=== PATIENT | male | born 1960 | race Caucasian/White ===

== ENCOUNTER 2017-06-10 12:32 | Emergency (ER) | payer OTHER ==
[2017-06-10 13:13] VITALS: BP 150/85
--- NOTE | 2017-06-10 13:20 | UC ---
Lower Extremity/Ankle HPI - HPI Summary HPI Summary: 57 y/o with c/o bilateral foot pain. Patient states noted cracked, dry, painful feet x several days. Has h/o dry patchy skin on top of great toes b/l since teenager, + recent cracked, bleeding inbetween great and 2nd toe b/l, redness, warmth b/l feet. states lives in trailer, + black mold in shower, + sweaty feet in boots daily. 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 - History of Current Complaint Chief Complaint: UCSkin Stated Complaint: BILATERAL FOOT SKIN COMPLAINT Time Seen by Provider: 06/10/17 13:07 Hx Obtained From: Patient Onset/Duration: Gradual Onset, Lasting Days, Still Present Severity Initially: Moderate Severity Currently: Moderate Aggravating Factor(s): Nothing Alleviating Factor(s): Other - air dry feet. Able to Bear Weight: Yes - Allergies/Home Medications Allergies/Adverse Reactions: Allergies Allergy/AdvReac Type Severity Reaction Status Date / Time Clindamycin AdvReac OTOTOXISITY Verified 06/10/17 13:07 PMH/Surg Hx/FS Hx/Imm Hx Previously Healthy: No - liver disease no DM - Surgical History Surgical History: None - Family History Known Family History: Negative: Cardiac Disease, Hypertension, Diabetes Family History: brother with throat CA - Social History Alcohol Use: Daily Alcohol Amount: beer 1-2 daily Substance Use Type: None Smoking Status (MU): Former Smoker When Did the Patient Quit Smoking/Using Tobacco: 2008 Review of Systems Constitutional: Negative Skin: Rash Eyes: Negative ENT: Negative Cardiovascular: Negative Gastrointestinal: Negative Genitourinary: Negative Motor: Negative Neurovascular: Negative Musculoskeletal: Negative Neurological: Negative Psychological: Negative All Other Systems Reviewed And Are Negative: Yes Physical Exam Triage Information Reviewed: Yes Appearance: Well-Appearing, No Pain Distress, Well-Nourished Vital Signs: Initial Vital Signs Temp 97.9 F 06/10/17 13:08 Pulse 73 06/10/17 13:08 Resp 16 06/10/17 13:08 BP 150/85 06/10/17 13:08 Pulse Ox 97 06/10/17 13:08 Vital Signs Reviewed: Yes Dental Exam: Normal Musculoskeletal: Positive: ROM Intact - ankles, toes, full ROM non-tender Neurological Exam: Normal Neurological: Positive: Muscle Tone Normal, Other: - sensation grossly intact Psychological Exam: Normal Skin: Positive: breakdown, Other - erythema noted throughout plantar aspect of b /l feet, + superficial breakdown be-tween great toes and 2nd toes b/l, skin breakdown between 3-4 toe L side foot, + plaque fortmation over PIP great toes b /l, non-tender, no erythema, Lower Extremity Course/Dx - Course Course Of Treatment: athletes foot b/l, discussed with patient, antifungal called to pharmacy, keep feet dry, air dry/ sun if possible, follow up with PCP within 1 week if no improvement - Differential Dx/Diagnosis Differential Diagnosis/HQI/PQRI: Cellulitis, Compartment Syndrome, Contusion, Infection, Osteomyelitis, Sprain, Strain, Tendonitis Provider Diagnoses: athletes foot bilaterally Discharge - Discharge Plan Condition: Good Disposition: HOME Prescriptions: Clotrimazole (Topical) [Clotrimazole] 1 % TOPICAL BID #1 tube Patient Education Materials: Athlete's Foot (ED) Referrals: Edwin Gomez MD [Primary Care Provider] - Additional Instructions: - Keep feet dry and clean - ANtifungal as directed
== END 2017-06-10 13:36 | disposition home or self-care (01) ==
LOC: UCCORT 12:32
DX: B35.3 Tinea pedis (principal); Z88.1 Allergy status to other antibiotic agents; Z87.891 Personal history of nicotine dependence
CPT/HCPCS: 99212; G0463

== ENCOUNTER 2017-10-26 14:53 | Emergency (ER) | payer OTHER ==
[2017-10-26 15:26] VITALS: BP 172/98
--- NOTE | 2017-10-26 15:51 | UC ---
Ear Complaint HPI - HPI Summary HPI Summary: C/O ear fullness and drainage from the right ear, worse at night into the morning. Some difficulty with popping his ears. - History of Current Complaint Chief Complaint: UCEar Stated Complaint: BILATERAL EAR COMPLAINT Time Seen by Provider: 10/26/17 15:43 Hx Obtained From: Patient Onset/Duration: Gradual Onset, Lasting Weeks - 8, Still Present Severity Initially: Mild Severity Currently: Moderate Associated Signs/Symptoms: Positive: Discharge, Hearing Loss - Allergies/Home Medications Allergies/Adverse Reactions: Allergies Allergy/AdvReac Type Severity Reaction Status Date / Time Clindamycin AdvReac OTOTOXISITY Verified 10/26/17 15:14 PMH/Surg Hx/FS Hx/Imm Hx Previously Healthy: No Cardiovascular History: Hypertension - Surgical History Surgical History: None - Family History Known Family History: Negative: Cardiac Disease, Hypertension, Diabetes Family History: brother with throat CA - Social History Occupation: Employed Full-time Alcohol Use: Daily Alcohol Amount: 6 pack/day Substance Use Type: None Smoking Status (MU): Light Every Day Tobacco Smoker Type: Cigarettes Amount Used/How Often: "couple cigs/day" Have You Smoked in the Last Year: Yes When Did the Patient Quit Smoking/Using Tobacco: 2008 Cessation Counseling: Patient Advised to Stop - Immunization History Most Recent Influenza Vaccination: no Review of Systems ENT: Ear Ache - with discharge Is Patient Immunocompromised?: No All Other Systems Reviewed And Are Negative: Yes Physical Exam Triage Information Reviewed: Yes Appearance: Well-Appearing, No Pain Distress, Well-Nourished Vital Signs: Initial Vital Signs Temp 97.9 F 10/26/17 15:15 Pulse 74 10/26/17 15:15 Resp 16 10/26/17 15:15 BP 172/98 10/26/17 15:15 Pulse Ox 98 10/26/17 15:15 Vital Signs Reviewed: Yes ENT: Positive: Pharynx normal, Nasal congestion, TMs normal - after wax flushed out., TM dull - AD with purulent discharge in the ear canal, but TM mobile on insufflation. Neck exam: Normal Respiratory: Positive: Lungs clear Cardiovascular Exam: Normal Musculoskeletal Exam: Normal Neurological Exam: Normal Psychological Exam: Normal Skin Exam: Normal Re-Evaluation - Re-Evaluation First Eval Re-Evaluation Time: 16:22 Change: Improved - Left ear feels much better after flushing. Hearing is better and TM looks normal with normal pneumatic otoscopy. Ear Complaint Course/Dx - Differential Dx/Diagnosis Differential Diagnosis/HQI/PQRI: Cerumen Impaction, Otitis Externa, Otitis Media , Perforated TM Provider Diagnoses: Otitis externa right ear. Cerumen impaction left ear. Allergic rhinitis Discharge - Discharge Plan Condition: Stable Disposition: HOME Prescriptions: Ciproflox/Dexameth OTIC.SUSP* [Ciprodex OTIC.SUSP*] 4 drop RIGHT EAR BID #1 btl Patient Education Materials: Ciprofloxacin/Dexamethasone (Into the ear), Otitis Externa (ED), Cerumen Impaction (ED) Referrals: Edwin Gomez MD [Primary Care Provider] -
== END 2017-10-26 16:47 | disposition home or self-care (01) ==
LOC: UCCORT 14:53
DX: H60.91 Unspecified otitis externa, right ear (principal); H61.22 Impacted cerumen, left ear; J30.9 Allergic rhinitis, unspecified; I10 Essential (primary) hypertension; Z88.1 Allergy status to other antibiotic agents; Z87.891 Personal history of nicotine dependence
CPT/HCPCS: 99212; G0463

== ENCOUNTER 2018-02-02 11:40 | Emergency (ER) | payer SELFPAY ==
[2018-02-02 12:42] VITALS: BP 164/96
--- NOTE | 2018-02-02 13:04 | UC ---
General HPI - HPI Summary HPI Summary: pt is c/o pain and swelling to both hands since september. R>L. states it began around september to october. 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 states he has not performed the job since 01/23/18 and his hands have not improved. he has taken an occasional motrin with some relief. he denies any current acute illness. he has no other joint pains or swelling but does note a L 4th trigger finger. pt does have a hx of hx and changed his medication recently. - History of Current Complaint Chief Complaint: UCUpperExtremity Stated Complaint: BILATERAL HAND COMPLAINT (WC) Time Seen by Provider: 02/02/18 12:56 Hx Obtained From: Patient Onset/Duration: Gradual Onset Timing: Constant Pain Intensity: 2 Aggravating: use Alleviating: nothing Associated Signs & Symptoms: Negative: Fever - Allergy/Home Medications Allergies/Adverse Reactions: Allergies Allergy/AdvReac Type Severity Reaction Status Date / Time clindamycin AdvReac Ototoxisity Verified 02/02/18 12:34 Eggplant Allergy Anaphylatic Uncoded 02/02/18 12:34 Shock Split Pea Soup Allergy Rash And Uncoded 02/02/18 12:34 Itching Home Medications: Home Medications amLODIPine TAB* [Norvasc 5 mg TAB*] 5 mg PO DAILY 02/02/18 [History Confirmed ] PMH/Surg Hx/FS Hx/Imm Hx Cardiovascular History: Hypertension - Surgical History Surgical History: None - Family History Known Family History: Negative: Cardiac Disease, Hypertension, Diabetes Family History: brother with throat CA - Social History Occupation: Employed Full-time Alcohol Use: Daily Alcohol Amount: 6 pack q daily Substance Use Type: None Smoking Status (MU): Former Smoker Type: Cigarettes Amount Used/How Often: "couple cigs/day" Have You Smoked in the Last Year: Yes When Did the Patient Quit Smoking/Using Tobacco: 2008 Household Exposure Type: Cigarettes - Immunization History Most Recent Influenza Vaccination: no Review of Systems Constitutional: Negative Skin: Negative Eyes: Negative ENT: Negative Respiratory: Negative Cardiovascular: Negative Gastrointestinal: Negative Genitourinary: Negative Motor: Negative Neurovascular: Negative Musculoskeletal: Other: - pain/swelling to hands Neurological: Negative Psychological: Negative Is Patient Immunocompromised?: No All Other Systems Reviewed And Are Negative: Yes Physical Exam Triage Information Reviewed: Yes Appearance: Well-Appearing Vital Signs: Initial Vital Signs Temp 98.0 F 02/02/18 12:37 Pulse 95 02/02/18 12:37 Resp 16 02/02/18 12:37 BP 164/96 02/02/18 12:37 Pulse Ox 97 02/02/18 12:37 Vital Signs Reviewed: Yes Eyes: Positive: Conjunctiva Clear ENT: Positive: Normal ENT inspection Neck: Positive: Supple, Nontender, No Lymphadenopathy Respiratory: Positive: Lungs clear, Normal breath sounds Cardiovascular: Positive: RRR, No Murmur, Pulses Normal - radial, Brisk Capillary Refill - radial Abdomen Description: Positive: Nontender, No Organomegaly, Soft Bowel Sounds: Positive: Present Musculoskeletal: Positive: Other: - BUE: Both hands (volar and dorsal) are swollen. R>L. No rash. Brisk cap refills. 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 L 4th finger c/w trigger on full flexion, pt still able to straighten on extension. No bony deformities or tenderness. No swelling above the wrists. Exam above wrists unremarkable. No lower extremity edema and no other joints appear swollen. Psychological: Positive: Age Appropriate Behavior Skin Exam: Normal Course/Dx - Course Course Of Treatment: non toxic. no concern for fx's or infection. the actue symmetrical onset and PE are not typical of over use. i am concerned that this may be related to a recent BP medication change that can cause swelling or from another acute process that may require a rheumatologic workup. i will tx with nsaid, limited work duty and refer to his pcp Dr Gomez. hx htn, repeat bp was 157/89. did have recent medication change to address his BP. - Differential Dx - Multi-Symptom Provider Diagnoses: Acute arthralgia with swelling to both hands. Discharge - Sign-Out/Discharge Documenting (check all that apply): Discharge - Discharge Plan Condition: Stable Disposition: HOME Prescriptions: Naproxen TAB* [Naprosyn 375 mg TAB*] 375 mg PO BID 7 Days #14 tab Patient Education Materials: Arthralgia (ED) Forms: *Work Release Referrals: Edwin Gomez MD [Primary Care Provider] - As Soon As Possible - Billing Disposition and Condition Condition: STABLE Disposition: HOME
== END 2018-02-02 13:47 | disposition home or self-care (01) ==
LOC: UCCORT 11:40
DX: M25.542 Pain in joints of left hand (principal); M25.541 Pain in joints of right hand; Z88.1 Allergy status to other antibiotic agents; Z91.018 Allergy to other foods; I10 Essential (primary) hypertension; Z87.891 Personal history of nicotine dependence
CPT/HCPCS: 99212; G0463

== ENCOUNTER 2019-04-09 14:42 | Emergency (ER) | payer OTHER ==
--- OUTSIDE RECORDS SUMMARY | 2019-04-09 14:55 | XMS REPORT | Continuity of Care Document ---
:1960 External Reference #:[id number] Author Name Columba Grant Care Team Providers Name Role Phone Edwin Gomez MD Primary Care Physician Unavailable Payers Date Identification Numbers Payment Provider Subscriber Onset: 2018 Policy Number: [id number] Eric Valladares Group Number: [id number] c/o [employer] Name: [id number] [address] PayID: [place] [id number] Policy Number: [id number] Deion Valladares PayID: [id number] [address] [place] [address] Onset: 2018 Policy Number: [id number] Eric Valladares PayID: [id number] Problems Active Problems Provider Date Tenosynovitis of hand Ramses Henry MD Onset: 02/24/2018 Acquired trigger finger Ramses Henry MD Onset: 02/24/2018 Family History Date Family Member(s) Observation Comments General HTN,DM,Stroke-father colon cancer General mother-low blood sugar,breast cancer Social History Type Date Description Comments Sex Unknown Lives With Spouse 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 Allergies, Adverse Reactions, Alerts Active Allergies Reaction Severity Comments Date Clindamycin tinnitus 02/24/2018 Medications Active Medications SIG Qnty Indications Ordering Provider Date Amlodipine Besylate 1 by mouth every Unknown 5mg day Tablets Pterostilbene 2 tabs by mouth Unknown daily. Benadryl Allergy take one tablet Unknown 25mg as needed for Tablets sleep Medications Administered in Office Medication SIG Qnty Indications Ordering Provider Date Celestone 3 mg and 3mg Ramses Henry MD 06/26/2018 Injection Celestone 3 mg and 3mg Ramses Henry MD 06/26/2018 Injection Celestone 3 mg and 3mg Ramses Henry MD 06/26/2018 Injection Vital Signs Date Vital Result Comment 04/01/2019 3:10pm Height 70.75 inches 5'10.75" Weight 241.00 lb Heart Rate 98 /min BP Systolic 144 mmHg BP Diastolic 82 mmHg Body Temperature 97.4 F Pain Level 3 BMI (Body Mass Index) 33.8 kg/m2 12/25/2018 3:38pm Height 70.75 inches 5'10.75" Weight 249.00 lb BP Systolic Sitting 124 mmHg BP Diastolic Sitting 76 mmHg Respiratory Rate 16 /min Pain Level 0 BMI (Body Mass Index) 35.0 kg/m2 09/11/2018 3:24pm Height 70.75 inches 5'10.75" Weight 249.00 lb BP Systolic Sitting 132 mmHg BP Diastolic Sitting 76 mmHg Respiratory Rate 16 /min Pain Level 0 ROM will become painful. BMI (Body Mass Index) 35.0 kg/m2 06/26/2018 3:10pm Height 70.75 inches 5'10.75" Heart Rate 80 /min BP Systolic 160 mmHg BP Diastolic 96 mmHg Respiratory Rate 16 /min Pain Level 0 O2 % BldC Oximetry 93 % 02/24/2018 11:10am Height 70.75 inches 5'10.75" Weight 249.00 lb Heart Rate 88 /min BP Systolic 150 mmHg lost his medication. Encouraged to Fup with PCP BP Diastolic 108 mmHg lost his medication. Encouraged to Fup with PCP Respiratory Rate 20 /min Pain Level 2 BMI (Body Mass Index) 35.0 kg/m2 Procedures Date Code Description Status 06/26/201839011 Inject Tendon Sheath Or Ligament Aponeurosis Eg Plantar Completed Fascia 06/26/201876439 Inject Tendon Sheath Or Ligament Aponeurosis Eg Plantar Completed Fascia Encounters Type Date Location Provider Dx Diagnosis Office Visit 12/25/2018 Orthopedic Ramses Henry M65.341 Trigger finger, 3:00p [facility] MARTINEZ MD right ring finger Pike M65.331 Trigger finger, right middle finger M65.342 Trigger finger, left ring finger Office Visit 09/11/2018 3:00p Orthopedic Ramses M65.341 [facility] Care Provider AT MD Elaine finger, right Pike ring finger M65.331 Trigger finger, right middle finger M65.321 Trigger finger, right index finger M65.841 Other synovitis and tenosynovitis, right hand Office Visit 06/26/2018 3:00p Orthopedic Ramses M65.342 [facility] AT MD Elaine finger, left Pike ring finger M65.341 Trigger finger, right ring finger M65.841 Other synovitis and tenosynovitis, right hand Office Visit 02/24/2018 10:30a Orthopedic Ramses M65.342 [facility] Care Provider AT MD Elaine finger, left Pike ring finger M65.342 Trigger finger, left ring finger M65.341 Trigger finger, right ring finger M65.341 Trigger finger, right ring finger M65.841 Other synovitis and tenosynovitis, right hand M65.841 Other synovitis and tenosynovitis, right hand M65.341 Trigger finger, right ring finger Plan of Treatment 04/01/2019 - Chin Gutiérrez, MDM25.512 Pain in left shoulderNew Xrays:Shoulder Left 2+ VWS, Ordered: 04/01/19Elbow Left 3+VWS, Ordered: 04/01/19M75.42 Impingement syndrome of left shoulderNew Xrays:MRI Shoulder Left W/O, Ordered: 04/01/19Follow up:Follow up: after MRIM25.522 Pain in left [id number] Unspecified injury of muscle, fascia and tendon of long headNew Xrays:MRI Elbow Left W/O, Ordered: 04/01/19
[2019-04-09 15:21] VITALS: BP 167/105
--- NOTE | 2019-04-09 15:49 | UC ---
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 REMOVED PART BUT CAN NOT REACH THE REST. STATES NOT ENGORGED AND NOT THERE FOR VERY LONG, DEFINITELY < 36 HOURS. - History of Current Complaint Chief Complaint: Alejandra Stated Complaint: TICK REMOVAL Time Seen by Provider: 04/09/19 15:42 Hx Obtained From: Patient Pain Intensity: 0 Associated Signs & Symptoms: Negative: Fever - Allergy/Home Medications Allergies/Adverse Reactions: Allergies Allergy/AdvReac Type Severity Reaction Status Date / Time clindamycin AdvReac Ototoxisity Verified 04/09/19 15:21 Eggplant Allergy Anaphylatic Uncoded 04/09/19 15:21 Shock Split Pea Soup Allergy Rash And Uncoded 04/09/19 15:21 Itching Home Medications: Home Medications NK [No Home Medications Reported] 04/09/19 [History Confirmed 04/09/19] PMH/Surg Hx/FS Hx/Imm Hx Previously Healthy: Yes - Surgical History Surgical History: None - Family History Known Family History: Negative: Cardiac Disease, Hypertension, Diabetes Family History: brother with throat CA - Social History Alcohol Use: Daily Alcohol Amount: 6 pack q daily Substance Use Type: None Smoking Status (MU): Former Smoker Type: Cigarettes Amount Used/How Often: "couple cigs/day" Have You Smoked in the Last Year: Yes When Did the Patient Quit Smoking/Using Tobacco: 2008 Household Exposure Type: Cigarettes - Immunization History Most Recent Influenza Vaccination: no Review of Systems All Other Systems Reviewed And Are Negative: Yes Constitutional: Negative: Fever, Fatigue Skin: Negative: Rash Musculoskeletal: Negative: Arthralgia Neurological: Negative: Weakness, Paresthesia, Numbness Physical Exam Triage Information Reviewed: Yes Appearance: Well-Appearing Vital Signs: Initial Vital Signs Temp 97.9 F 04/09/19 15:16 Pulse 98 04/09/19 15:16 Resp 17 04/09/19 15:16 BP 167/105 04/09/19 15:16 Pulse Ox 98 04/09/19 15:16 Vital Signs Reviewed: Yes Eyes: Positive: Conjunctiva Clear Respiratory: Positive: No respiratory distress Abdomen Description: Positive: Other: - Part of tick in R side of abdomen, removed with splinter forcep. Site cleaned. Musculoskeletal: Positive: ROM Intact Neurological: Positive: Alert Psychological: Positive: Age Appropriate Behavior Skin Exam: Normal Skin: Negative: Rashes Course/Dx - Course Course Of Treatment: BP LAST WEEK AT ORTHOPEDICS WAS 135/82. STATES IT GOES UP DURING SOME VISITS BUT THEN RETURNS TO NORMAL AT HOME. NO SANDHU OR CP. WILL D/W DR GIL AT HIS NEXT [place] APPT. - Diagnoses Provider Diagnosis: Tick bite of abdomen Discharge - Sign-Out/Discharge Documenting (check all that apply): Patient Departure All imaging exams completed and their final reports reviewed: No Studies - Discharge Plan Condition: Stable Disposition: HOME Patient Education Materials: Tick Bite (ED) Referrals: Edwin Gil MD [Primary Care Provider] - If Needed - Billing Disposition and Condition Condition: STABLE Disposition: Home
== END 2019-04-09 15:55 | disposition home or self-care (01) ==
LOC: UCCORT 14:42
DX: S30.861A Insect bite (nonvenomous) of abdominal wall, initial encounter (principal); W57.XXXA Bitten or stung by nonvenomous insect and other nonvenomous arthropods, initial encounter; Z87.891 Personal history of nicotine dependence
CPT/HCPCS: 99211; G0463